=== PATIENT | male | born 1930 | race Asian ===

== ENCOUNTER → 2018-01-17 | Outpatient (CLI) | payer MEDICARE, OTHER | END | disposition home or self-care (01) | LOC: CVU 09:43 | PROVIDERS: ATTEND Surgery | DX: I65.23 Occlusion and stenosis of bilateral carotid arteries (principal); I77.3 Arterial fibromuscular dysplasia; I10 Essential (primary) hypertension; I63.9 Cerebral infarction, unspecified | CPT/HCPCS: 93880 ==

== ENCOUNTER → 2018-02-04 | Outpatient (CLI) | payer MEDICARE, OTHER | END | disposition home or self-care (01) | LOC: RAD 09:54 | DX: R13.12 Dysphagia, oropharyngeal phase (principal) | CPT/HCPCS: 74230 ==

== ENCOUNTER → 2018-02-20 | Outpatient (CLI) | payer MEDICARE, OTHER ==
[~2018-02-20] MED LIST: AMLO5TAB2 PO; ASCO10004 PO; ASPI-496 PO; ATOR20TA9 PO; CARV12.52 PO; CHOL200074 PO; CLOP75TA PO; LOSA1TAB7 PO; MULT-658 PO; PANT40TA5 PO; TAMS-11 PO; VITAMIN D3 PO; losartan/HCTZ PO
[2018-02-20 10:48] LABS: BASOPHILS # (AUTO) 0.02 x10^3/uL (0-0.1); BASOPHILS % (AUTO) 1 % (0-1); EOSINOPHILS % (AUTO) 6 % (1-7); LYMPHOCYTES # (AUTO) 1.33 x10^3/uL (1-3.4); LYMPHOCYTES % (AUTO) 27 % (22-44); MD NO; MEAN CORPUSCULAR HEMOGLOBIN 32.6 pg (27.5-34.5); MEAN CORPUSCULAR HGB CONC 34.4 g/dL (33.2-36.2); MEAN CORPUSCULAR VOLUME 94.8 fL (81-97); MEAN PLATELET VOLUME 8.1 fL (7.4-10.4); MONOCYTES # (AUTO) 0.49 x10^3/uL (0.2-0.8); MONOCYTES % (AUTO) 10 % (2-9); NEUTROPHILS # (AUTO) 2.71 x10^3/uL (1.8-6.8); NEUTROPHILS % (AUTO) 56 % (42-75); PLATELET COUNT 233 x10^3/uL (130-400); RED BLOOD COUNT 4.18 x10^6/uL (4.38-5.82); RED CELL DISTRIBUTION WIDTH 12.4 % (9.4-14.8)
[2018-02-20 10:57] LABS: ALANINE AMINOTRANSFERASE 40 U/L (12-78); ALBUMIN 3.9 g/dL (3.4-5.0); ANION GAP 9 mmol/L (5-15); CALCIUM 8.6 mg/dL (8.5-10.1); CHLORIDE 108 mmol/L (98-107)
[2018-02-20 10:59] LABS: ALKALINE PHOSPHATASE 62 U/L (45-117); BILIRUBIN,TOTAL 0.6 mg/dL (0.2-1.0); TOTAL PROTEIN 7.1 g/dL (6.4-8.2)
== END | disposition home or self-care (01) ==
LOC: STAR 09:33
PROVIDERS: ATTEND Surgery
DX: Z01.818 Encounter for other preprocedural examination (principal); I65.21 Occlusion and stenosis of right carotid artery; I45.10 Unspecified right bundle-branch block; R00.1 Bradycardia, unspecified
CPT/HCPCS: 36415; 80053; 85025; 93005

== ENCOUNTER 2018-02-24 05:26 | Inpatient (IN) | payer MEDICARE, OTHER ==
[2018-02-20 10:12] VITALS: BP 155/71
[~2018-02-24] VITALS: Ht 167.6 cm; Wt 75.4 kg
[~2018-02-24 05:26] MED LIST changes: -CHOL200074 PO; -LOSA1TAB7 PO
[2018-02-24] MEDS ORDERED: LACTATED RINGERS 1,000 ML IV SCH (06:07)
[2018-02-24] MEDS ORDERED: LOSA1TAB7 PO (06:14)
[2018-02-24] MEDS ORDERED: CHOL200074 PO (06:28)
[2018-02-24] MEDS ORDERED: LIDOCAINE-MPF 1%, 2ML INFIL ONE (06:30)
[2018-02-24] MEDS ORDERED: LIDOCAINE/PF 1%, 30ML ONE (06:53)
[2018-02-24] MEDS ORDERED: PROTAMINE SULFATE 10 MG/ML, 5ML ONE (06:53)
[2018-02-24] MEDS ORDERED: PAPAVERINE 30 MG/ML, 2ML ONE (06:53)
[2018-02-24] MEDS ORDERED: THROMBIN 20,000 UNIT VIAL TP ONE (06:53)
[2018-02-24] MEDS ORDERED: HEPARIN 1,000 UNITS/ML, 10ML ONE (06:53)
[2018-02-24] MEDS ORDERED: EPINEPHRINE 1 MG/ML, 1ML ONE (06:54)
[2018-02-24] MEDS ORDERED: BUPIVACAINE/PF 0.5% ONE (06:54)
[2018-02-24] MEDS ORDERED: ONDANSETRON 2MG/ML, 2ML IVPush ONE (07:00)
[2018-02-24] MEDS ORDERED: GABAPENTIN 300 MG CAPSULE PO ONE (07:00)
[2018-02-24] MEDS ORDERED: OXYcodone IR 5MG TABLET PO ONE (07:00)
[2018-02-24] MEDS ORDERED: ACETAMINOPHEN 500 MG TABLET PO ONE (07:00)
[2018-02-24] MEDS ORDERED: FAMOTIDINE 20 MG TABLET PO ONE (07:00)
[2018-02-24] MEDS ORDERED: MIDAZOLAM 1 MG/ML, 2ML ONE (07:12)
[2018-02-24] MEDS ORDERED: FENTANYL PF 100 MCG/2ML ONE (07:12)
[2018-02-24] MEDS ORDERED: niCARDipine 2.5 MG/ML, 10ML ONE (07:25)
[2018-02-24] MEDS ORDERED: LABETALOL 5MG/ML, 20ML IV PRN (09:00)
[2018-02-24] MEDS ORDERED: METOPROLOL 1 MG/ML, 5ML IV PRN (09:00)
[2018-02-24] MEDS ORDERED: FENTANYL PF 100 MCG/2ML IV PRN (09:00)
[2018-02-24] MEDS ORDERED: HYDROcodone/APAP 7.5-325MG/15ML UDC PO PRN (09:00)
[2018-02-24] MEDS ORDERED: PROMETHAZINE 25 MG/ML, 1ML IV PRN (09:00)
[2018-02-24] MEDS ORDERED: hydrALAzine 20 MG/ML, 1ML IV PRN (09:00)
[2018-02-24] MEDS ORDERED: EPHEDRINE 50 MG/ML, 1ML IVPush PRN (09:00)
[2018-02-24] MEDS ORDERED: ALBUTEROL SULFATE 2.5 MG/3 ML NPPB PRN (09:00)
[2018-02-24] MEDS ORDERED: OXYcodone 5 MG/5 ML ORAL.SOL UDC PO PRN (09:00)
[2018-02-24] MEDS ORDERED: MEPERIDINE/PF 25MG/0.5ML IVPush PRN (09:00)
[2018-02-24] MEDS ORDERED: HYDROmorphone 1 MG/ML, 1ML IV PRN (09:00)
[2018-02-24] MEDS ORDERED: ONDANSETRON 2MG/ML, 2ML IV PRN ×2 (09:00→13:00)
[2018-02-24 12:40] VITALS: BP 158/72
[2018-02-24] MEDS ORDERED: ACETAMINOPHEN 325 MG TABLET PO PRN (13:00)
[2018-02-24] MEDS ORDERED: HYDROcodone/APAP 5/325 TABLET PO PRN (13:00)
[2018-02-24] MEDS ORDERED: LABETALOL 5MG/ML, 20ML IVPush PRN (13:00)
[2018-02-24] MEDS ORDERED: MORPHINE SULFATE 4 MG/ML, 1ML IV PRN (13:00)
[2018-02-24] MEDS: LACTATED RINGERS 1,000 ML IV SCH ×2 (13:00→22:12)
[2018-02-24 14:00] VITALS: BP 136/67
[2018-02-24] MEDS: CEFAZOLIN PMX 2GM/50ML 50 ML IVPB SCH ×2 (15:36→23:57)
[2018-02-24] MEDS ORDERED: ONDANSETRON 2MG/ML, 2ML ONE (15:38)
[2018-02-24] MEDS ORDERED: PROPOFOL 10 MG/ML, 20ML ONE (15:38)
[2018-02-24] MEDS ORDERED: CEFAZOLIN 1,000 MG ONE (15:38)
[2018-02-24] MEDS ORDERED: ROCURONIUM 10MG/ML,5ML ONE (15:38)
[2018-02-24] MEDS ORDERED: SUCCINYLCHOLINE 20 MG/ML, 10ML ONE (15:38)
[2018-02-24] MEDS ORDERED: GLYCOPYRROLATE 0.2MG/1ML, 5ML ONE (15:38)
[2018-02-24] MEDS ORDERED: DEXAMETHASONE 4 MG/ML, 1ML ONE (15:38)
[2018-02-24] MEDS ORDERED: NEOSTIGMINE 1 MG/ML, 10ML ONE (15:38)
[2018-02-24] MEDS: PANTOPROZOLE 40MG TABLET PO SCH (17:35)
[2018-02-24] MEDS: CARVEDILOL 12.5 MG TABLET PO SCH (17:36)
[2018-02-24 20:00] VITALS: BP 111/61
[2018-02-24] MEDS ORDERED: ATORVASTATIN 20 MG TABLET PO SCH (21:00)
[2018-02-24] MEDS: SODIUM CHLORIDE FLUSH 10ML SYR IVF SCH (21:00)
[2018-02-24 23:19] VITALS: BP 104/64
[2018-02-25 02:50] VITALS: BP 117/64
[2018-02-25] MEDS: CARVEDILOL 12.5 MG TABLET PO SCH (05:50)
[2018-02-25] MEDS: LACTATED RINGERS 1,000 ML IV SCH (07:27)
[2018-02-25] MEDS: PANTOPROZOLE 40MG TABLET PO SCH (08:33)
[2018-02-25 08:41] VITALS: BP 114/50
[2018-02-25] MEDS ORDERED: LOSARTAN 50MG TABLET PO SCH (09:00)
[2018-02-25] MEDS ORDERED: HYDROCHLOROTHIAZIDE 12.5 MG CAPSULE PO SCH (09:00)
[2018-02-25] MEDS ORDERED: CLOPIDOGREL 75 MG TABLET PO SCH (09:00)
[2018-02-25] MEDS ORDERED: TAMSULOSIN 0.4 MG CAP.ER.24H PO SCH (09:00)
[2018-02-25] MEDS: SODIUM CHLORIDE FLUSH 10ML SYR IVF SCH (09:00)
[2018-02-25] MEDS ORDERED: AMLODIPINE 5 MG TABLET PO SCH (09:00)
[2018-02-25 13:08] VITALS: BP 113/52
== END 2018-02-25 14:03 | disposition home or self-care (01) | DRG 39 ==
LOC: ORIP 05:26 → 4NOR 12:33 → DCLOUNGE 02-25 13:49
PROVIDERS: ADMIT Surgery; ATTEND Surgery
PROC: 03CK0ZZ Extirpation of Matter from Right Internal Carotid Artery, Open Approach (ICD-10-PCS; 2018-02-24)
PROC: 03CM0ZZ Extirpation of Matter from Right External Carotid Artery, Open Approach (ICD-10-PCS; 2018-02-24)
PROC: 03UH0KZ Supplement Right Common Carotid Artery with Nonautologous Tissue Substitute, Open Approach (ICD-10-PCS; 2018-02-24)
PROC: 03UK0KZ Supplement Right Internal Carotid Artery with Nonautologous Tissue Substitute, Open Approach (ICD-10-PCS; 2018-02-24)
PROC: 03CH0ZZ Extirpation of Matter from Right Common Carotid Artery, Open Approach (ICD-10-PCS; principal; 2018-02-24 07:30)
DX: I65.21 Occlusion and stenosis of right carotid artery (principal); I10 Essential (primary) hypertension; E78.5 Hyperlipidemia, unspecified
CPT/HCPCS: 36415; 86850; 86900; C1729; J0171; J0690; J1100; J1644; J2250; J2405; J2704; J2710; J2720; J3010; J3490; C1768; J0330; J2440; J7120

== ENCOUNTER → 2018-07-03 | Outpatient (CLI) | payer MEDICARE, OTHER ==
[~2018-07-03] MED LIST changes: +AMLO-150 PO; -AMLO5TAB2 PO; +ATOR20TA37 PO; -ATOR20TA9 PO; +CHOL200074 PO; +LOSA1TAB7 PO
== END | disposition home or self-care (01) ==
LOC: CVU 09:53
PROVIDERS: ATTEND Surgery
DX: I65.23 Occlusion and stenosis of bilateral carotid arteries (principal); I10 Essential (primary) hypertension; E78.5 Hyperlipidemia, unspecified
CPT/HCPCS: 93880

== ENCOUNTER 2018-10-07 11:01 | Outpatient (CLI) | payer MEDICARE, OTHER | END 2018-10-07 23:59 | disposition home or self-care (01) | LOC: CFH 11:01 | PROVIDERS: ATTEND Internal Medicine Cardiovascular Disease | DX: I08.0 Rheumatic disorders of both mitral and aortic valves (principal); R00.8 Other abnormalities of heart beat; E78.5 Hyperlipidemia, unspecified; I10 Essential (primary) hypertension; Z86.73 Personal history of transient ischemic attack (TIA), and cerebral infarction without residual deficits | CPT/HCPCS: 93306 ==

== ENCOUNTER → 2019-07-02 | Outpatient (CLI) | payer MEDICARE, OTHER | END | disposition home or self-care (01) | LOC: CFH 09:31 | PROVIDERS: ATTEND Internal Medicine Cardiovascular Disease | DX: I08.0 Rheumatic disorders of both mitral and aortic valves (principal); I10 Essential (primary) hypertension; E78.5 Hyperlipidemia, unspecified; F17.200 Nicotine dependence, unspecified, uncomplicated; Z86.73 Personal history of transient ischemic attack (TIA), and cerebral infarction without residual deficits | CPT/HCPCS: 93306 ==

== ENCOUNTER → 2019-12-31 | Outpatient (CLI) | payer MEDICARE, OTHER | END | disposition home or self-care (01) | LOC: CFH 09:58 | PROVIDERS: ATTEND Internal Medicine Cardiovascular Disease | DX: I08.0 Rheumatic disorders of both mitral and aortic valves (principal); I31.3 Pericardial effusion (noninflammatory) | CPT/HCPCS: 93308; 93321; 93325 ==

== ENCOUNTER 2021-01-27 14:52 | Outpatient (CLI) | payer MEDICARE ==
[~2021-01-27 14:52] MED LIST changes: +ASCO100018 PO; -ASCO10004 PO; -PANT40TA5 PO; +PANT40TA6 PO
== END 2021-01-27 23:59 | disposition home or self-care (01) ==
LOC: CFH 14:52
PROVIDERS: ATTEND Internal Medicine Cardiovascular Disease
DX: I08.8 Other rheumatic multiple valve diseases (principal); I31.3 Pericardial effusion (noninflammatory)
CPT/HCPCS: 93306